=== PATIENT | female | born 1960 | race Two or more races ===

== ENCOUNTER 2017-05-18 11:18 | Outpatient (CLI) | payer OTHER | END 2017-05-18 11:26 | disposition home or self-care (01) | LOC: SONOGRAMA 11:18 | DX: E04.1 Nontoxic single thyroid nodule (principal) ==

== ENCOUNTER 2021-06-28 07:41 | Day surgery (SDC) | payer OTHER ==
[~2021-06-28] VITALS: Ht 157.5 cm; Wt 67.6 kg
[~2021-06-28 07:41] MED LIST: BETAXOLOL HCL5 ML OPHT; FOSAMAX70 MG PO; NP THYROID30 MG PO; SINGULAIR5 MG PO
[2021-06-28] MEDS ORDERED: IBU600 MG PO (12:09)
== END 2021-06-28 17:30 | disposition home or self-care (01) ==
LOC: CIR.AMB 07:41
PROVIDERS: ATTEND Obstetrics & Gynecology Gynecology
DX: C53.0 Malignant neoplasm of endocervix (principal); Z88.8 Allergy status to other drugs, medicaments and biological substances; Z20.822 Contact with and (suspected) exposure to COVID-19; Z88.0 Allergy status to penicillin; Z86.16 Personal history of COVID-19; E06.3 Autoimmune thyroiditis; L40.8 Other psoriasis

== ENCOUNTER 2024-11-18 10:45 | Outpatient (CLI) | payer OTHER ==
[~2024-11-18 10:45] MED LIST changes: +IBU600 MG PO
== END 2024-11-18 10:50 | disposition home or self-care (01) ==
LOC: SONOGRAMA 10:45
PROVIDERS: ATTEND Pathology Anatomic Pathology
DX: D34 Benign neoplasm of thyroid gland (principal); E07.89 Other specified disorders of thyroid; E04.2 Nontoxic multinodular goiter